=== PATIENT | female | born 2005 | race Caucasian/White ===

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

== ENCOUNTER 2024-10-15 23:46 | Emergency (ER) | payer OTHER, SELFPAY ==
--- NOTE | ~2024-10-15 | XR_ITS ---
Portable chest x-ray Comparison: None Clinical History: Chest pain Findings: Lungs are clear, without focal consolidation or pleural effusion. Cardiomediastinal silho uette is unremarkable. Bones and soft tissues are unremarkable. Impression: Normal chest. Reviewed, dictated and finalized at location . HELPER Impression: Normal chest.
--- NOTE | 2024-10-15 23:56 | ECG_ITS ---
Test Date: 2024-10-16 00:03:52 Measurements Intervals [place] Rate: 107 P: 64 TN: 151 QRS: 10 QRSD: 108 T: 50 QT: 350 QTc: 469 Interpretive Statements SINUS TACHYCARDIA INCOMPLETE RIGHT BUNDLE BRANCH BLOCK NONSPECIFIC ST AND T-WAVE ABNORMALITY No previous ECG available for comparison Electronically Signed On 10-16-2024 12:14:47 AWS CONSULTANT by Zheng Bella M.D.
[2024-10-16 00:49] VITALS: PULSE 99; RESP 25
[2024-10-16 00:49] LABS: BEDSIDEPREGUCG Negative (Negative)
[2024-10-16] MEDS: IPRATROPIUM 0.5 MG/ALBUTEROL SULFATE 2.5 MG AMPUL.NEB 3 ML 12 ML INHALATION (00:49)
[2024-10-16 00:55] VITALS: O2SAT 95
--- NOTE | 2024-10-16 00:55 | PCRCNOTE ---
RT unable to administer continuous updraft treatment when ordered due to patient being out of room.
[2024-10-16 01:08] LABS: Basophils Percent Auto 0.3 % (0.2-1.2); Eosinophils Absolute Auto 0.1 K/mm3 (0-0.3); Eosinophils Percent Auto 1.1 % (0-4.4); Hematocrit 43.3 % (37.0-47.0); Hemoglobin 14.5 g/dL (12.0-15.0); Immature Granulocyte Absolute 0.03 K/mm3 (0.00-0.031); Immature Granulocyte Percent A 0.3 % (0-0.5); Lymphocytes Absolute Auto 1.26 K/mm3 (0.9-3.2); Lymphocytes Percent Auto 12.4 % (18.3-44.2); Mean Corpuscular HGB Conc 33.5 g/dl (32-36); Mean Corpuscular Hemoglobin 27.9 pg (26-34); Mean Corpuscular Volume 83.4 fl (80-100); Mean Platelet Volume 9.3 fl (7.4-10.4); Monocytes Absolute Auto 0.3 K/mm3 (0.1-0.6); Monocytes Percent Auto 2.8 % (2.6-8.5); Neutrophils Absolute Auto 8.5 K/mm3 (1.3-6.7); Neutrophils Percent Auto 83.1 % (45.5-73.1); Platelet Count Result 377 k/mm3 (150-375); Red Blood Count 5.19 M/mm3 (4.2-5.4); White Blood Count 10.2 K/mm3 (4.5-10.0)
[2024-10-16 01:18] LABS: Alanine Aminotransferase 33 U/L (6-35); Albumin Level 4.6 g/dL (3.5-5.1); Alkaline Phosphatase 62 U/L (38-126); Anion Gap 6 mmol/L (4-12); Aspartate Amino Transferase 25 U/L (14-36); Bilirubin,Total 1.1 mg/dL (0.2-1.3); Blood Urea Nitrogen 8 mg/dL (7-17); Calcium 9.3 mg/dL (8.4-10.2); Carbon Dioxide 27 mmol/L (22-30); Chloride 104 mmol/L (98-107); Estimated CRCL calculation 132 ml/min; Estimated Glomerular Filt Rate > 60; Glucose 134 mg/dL (65-110); Potassium 3.5 mmol/L (3.4-5.0); Sodium 137 mmol/L (137-145)
[2024-10-16] MEDS: dexAMETHasone SOD PHOS INJ 10 MG/ML 1 ML VIAL IV PUSH (01:20)
[2024-10-16] MEDS: MAGNESIUM SULF 2 GM/WATER 50ML 2 GM/50 ML BAG IVPB (01:20)
[2024-10-16] MEDS: SODIUM CHLORIDE 0.9% IV 1,000 ML 999 ML IV CONT (01:21)
[2024-10-16 01:28] VITALS: O2SAT 99
[2024-10-16 01:52] VITALS: PULSE 92; RESP 21
--- NOTE | 2024-10-16 02:26 | ED_ITS ---
HPI - General Adult General Chief complaint: Shortness of Breath/Dyspnea Stated complaint: SOB, wheezing, chest pain, hx of asthma Time Seen by Provider: 10/16/24 00:24 History of Present Illness HPI narrative: This is a 19-year-old female history of asthma presenting with difficulty breathing. Patient woke up this morning has been feeling more wheezy than usual. She has had a slight cough. No fevers chills chest pain or flu-like symptoms. She has been taking rest inhaler as instructed. She has noticed over the last month she has had to use it more than usual. Related Data Allergies Allergy/AdvReac Type Severity Reaction Status Date / Time No Known Allergies Allergy Verified 10/16/24 00:40 Exam 2 Narrative: APPEARANCE: No apparent distress. Head: atraumatic. EYES: EOMI, NOSE: Atraumatic NECK: Trachea midline RESPIRATORY: slightly tachypneic, speaking in full sentences, wheezing CARDIOVASCULAR: tachycardic ABDOMINAL: Non-distended MUSCULOSKELETAl: No obvious deformities NEURO: Alert. Moving 4/4 extremities SKIN:: Warm, dry. Normal color PSYCHIATRIC: Normal affect Course Vital Signs Vital signs: Vital Signs Pulse Rate 99 10/16/24 00:49 Respiratory Rate 25 H 10/16/24 00:49 Pulse Rate 92 10/16/24 01:52 Respiratory Rate 21 H 10/16/24 01:52 Pulse Oximetry 99 10/16/24 01:28 Oxygen Delivery Room Air 10/16/24 01:28 Medical Decision Making [facility] Narrative Medical decision making narrative: -Course: 19-year-old female with asthma presenting with difficulty breathing. Wheezing on exam. Given an hour long DuoNeb treatment dexamethasone and magnesium with improvement. no more wheezing. Patient feels better. Patient discharged with primary care follow-up. Given return precautions. -DDX includes but is not limited to: asthma exacerbation, pneumonia, URI -Co-morbidities complicating care: asthma -Independent interpretation of studies: labs imaging reviewed - Vital Signs Vital Signs: Vital Signs Pulse Rate 99 10/16/24 00:49 Respiratory Rate 25 H 10/16/24 00:49 Pulse Rate 92 10/16/24 01:52 Respiratory Rate 21 H 10/16/24 01:52 Pulse Oximetry 99 10/16/24 01:28 Oxygen Delivery Room Air 10/16/24 01:28 Lab Data 10/16/24 01:03 10/16/24 01:03 Labs: Lab Results 10/16/24 10/16/24 Range/Units 00:47 01:03 WBC 10.2 H (4.5-10.0) K/mm3 RBC 5.19 (4.2-5.4) M/mm3 Hgb 14.5 (12.0-15.0) g/dL Hct 43.3 (37.0-47.0) % MCV 83.4 (80-100) fl MCH 27.9 (26-34) pg MCHC 33.5 (32-36) g/dl RDW 13.0 (11.5-14.5) % Plt Count 377 H (150-375) k/mm3 MPV 9.3 (7.4-10.4) fl Immature Gran % (Auto) 0.3 (0-0.5) % Neut % (Auto) 83.1 H (45.5-73.1) % Lymph % (Auto) 12.4 L (18.3-44.2) % Gilliam % (Auto) 2.8 (2.6-8.5) % Eos % (Auto) 1.1 (0-4.4) % Baso % (Auto) 0.3 (0.2-1.2) % Lymph # (Auto) 1.26 (0.9-3.2) K/mm3 Gilliam # (Auto) 0.3 (0.1-0.6) K/mm3 Eos # (Auto) 0.1 (0-0.3) K/mm3 Baso # (Auto) 0.0 (0.0-0.1) K/mm3 Abs Immat Gran (auto) 0.03 (0.00-0.031) K/mm3 Absolute Neuts (auto) 8.5 H (1.3-6.7) K/mm3 Absolute Nucleated RBC 0.000 (0.0-0.012) K/mm3 Nucleated RBC % 0.0 (0.0-0.2) % Sodium 137 (137-145) mmol/L Potassium 3.5 (3.4-5.0) mmol/L Chloride 104 (98-107) mmol/L Carbon Dioxide 27 (22-30) mmol/L Anion Gap 6 (4-12) mmol/L BUN 8 (7-17) mg/dL Creatinine 0.80 (0.7-1.0) mg/dL Estim Creat Clear Calc 132 ml/min Estimated GFR > 60 (59 - ) Glucose 134 H (65-110) mg/dL Calcium 9.3 (8.4-10.2) mg/dL Total Bilirubin 1.1 (0.2-1.3) mg/dL AST 25 (14-36) U/L ALT 33 (6-35) U/L Alkaline Phosphatase 62 (38-126) U/L Total Protein 8.0 (6.3-8.2) g/dL Albumin 4.6 (3.5-5.1) g/dL POC Urine HCG, Qual Negative (Negative) Discharge Plan Discharge Clinical Impression: Asthma Patient Disposition: Home, Self-Care Condition: Stable Instructions: Antibiotic Form, Asthma (ED) Additional Instructions: Please follow-up with your primary care physician. Return if you develop any new or worsening symptoms. Patient Language: Liberian Follow-up/Referrals: MARBELLA,BEL SANDOVAL [Primary Care Provider] -
[2024-10-16 02:55] VITALS: BP 133/80; PULSE 111; RESP 22; O2SAT 99
[2024-10-16 03:36] VITALS: BP 133/80; PULSE 111; RESP 22; O2SAT 99
== END 2024-10-16 03:38 | disposition home or self-care (01) ==
PROVIDERS: Emergency Provider Emergency Medicine; PCP Nurse Practitioner Family
DX: J45.909 Unspecified asthma, uncomplicated (principal)
CPT/HCPCS: 36415; 71045; 80053; 81025; 85025; 93005; 94640; 96365; 96366; 96375; 99284; J1100; J3475; J7030

== ENCOUNTER 2025-04-05 01:29 | Emergency (ER) | payer OTHER, SELFPAY ==
[2025-04-05] VITALS (7 sets, daily range): BP systolic 122–149; BP diastolic 65–95; PULSE 87–94; RESP 12–25; TEMP 36.2; O2SAT 97–100
--- OUTSIDE RECORDS SUMMARY | 2025-04-05 01:31 | XMS_ITS | Referral Summary ---
Author Organization [facility] Address [address] [place] [id number] Care Team Providers Care Builder'S Labourer Name Role Phone No, Physician Primary Care Provider [phone] Allergies No known active allergies Medications albuterol HFA (PROVENTIL HFA,VENTOLIN HFA,PROAIR HFA) 90 mcg/actuation inhaler INHALE 2 PUFFS INTO THE LUNGS EVERY 6 HOURS NEEDED FOR WHEEZE Active citalopram (CeleXA) 10 mg tablet Take 1 tablet (10 mg total) by mouth daily 4 Active fluticasone propion-salmete roL (ADVAIR DISKUS) 100-50 mcg/dose diskus inhaler INHALE 1 PUFF INTO THE LUNGS TWICE A DAY 4 Active albuterol 2.5 mg /3 mL (0.083 %) nebulizer solutionIndicat ions:Exacerbati on of asthma, unspecified asthma severity, unspecified whether persistent Take 3 mL (2.5 mg total) by nebulization every 6 (six) hours as needed for wheezing 75 mL 4 Active Active Problems Problem Noted Date Diagnosed Date 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 gentle skin care; start TMC 0.1% ointment BID PRN (SER); if continues to flare, discussed patch testing Social History Tobacco Use Types Packs/Day Years Used Date Smoking Tobacco: Never Comments Unknown Sex and Gender Information Value Date Recorded Sex Assigned at Not on file Legal Sex Female 6:00 AM MANAGER MEDICAL DEVICE Gender Identity Not on file Sexual Orientation Not on file Last Filed Vital Signs Vital Sign Reading Time Taken Comments Blood Pressure 136/82 10/15/2024 2:20 PM MANAGER MEDICAL DEVICE Pulse 90 10/15/2024 2:30 PM MANAGER MEDICAL DEVICE Temperature 36.4 C (97.5 F) 10/15/2024 2:20 PM MANAGER MEDICAL DEVICE Respiratory Rate 24 10/15/2024 2:20 PM MANAGER MEDICAL DEVICE Oxygen Saturation 98% 10/15/2024 2:30 PM MANAGER MEDICAL DEVICE Inhaled Oxygen Concentration - - Weight 122 kg (269 lb) 10/15/2024 2:20 PM MANAGER MEDICAL DEVICE Height - - Body Mass Index - - Plan of Treatment Not on file [place] [id number] [facility] CHOICE PLUS Care Teams Builder'S Labourer Relationship Specialty Start Date End Date No, Physician PCP - General 11/01/22
--- OUTSIDE RECORDS SUMMARY | 2025-04-05 01:31 | XMS_ITS | Clinical Summary ---
Author Organization [facility] Address [address] [place] [address] Phone Care Team Providers Care Meal Packer Name Role Phone Provider, None Primary Care Provider Unavailabl e Allergies No known active allergies Medications ibuprofen (MOTRIN) 800 MG TabletIndication s:Crush injury Take 1 Tablet by mouth every 8 hours. 15 Tablet 07/25/2021 Active Social History Tobacco Use Types Packs/Day Years Used Date Smoking Tobacco: Never Assessed Comments Unknown Sex and Gender Information Value Date Recorded Sex Assigned at Not on file Legal Sex Female 12:34 PM CDT Gender Identity Not on file Sexual Orientation Not on file Last Filed Vital Signs Vital Sign Reading Time Taken Comments Blood Pressure 112/72 07/25/2021 12:59 PM CDT Pulse 71 07/25/2021 12:59 PM CDT Temperature 36.7 C (98 F) 07/25/2021 12:59 PM CDT Respiratory Rate 18 07/25/2021 12:59 PM CDT Oxygen Saturation 98% 07/25/2021 12:59 PM CDT Inhaled Oxygen Concentration - - Weight 113.4 kg (250 lb) 07/25/2021 12:59 PM CDT Height 179.8 cm (5' 10.8) 07/25/2021 12:59 PM C DT Body Mass Index 35.07 07/25/2021 12:59 PM CDT Plan of Treatment Health Maintenance Due Date Last Done Comments Hepatitis C Virus (HCV) Screening 2003 Meningococcal B Immunization (1 of 2 - Standard) 2019 Hepatitis B Immunization (1 of 3 - 19+ 3-dose series) 2022 Pap Smear 2024 Influenza Immunization (#1) 06/28/20242 02/2020, 10/06/2019, 09/14/2018 SARS-COV-2 Immunization ( season) 2024 10/11/2021, 01/27/2021, 01/06/2021 Respiratory Syncytial Virus (RSV) Immunization (Adult) (1 - 1-dose 75+ series) 2078 DTaP/Tdap/Td Immunization Discontinued 07/08/2014 TdaP Immunization Completed 07/08/2014 Human Papillomavirus (HPV) Immunization Completed 10/06/2019, 04/06/2019, 03/02/2019 Meningococcal Immunization (ACWY) Completed 08/11/2020 Pneumococcal Immunization Combined Aged Out No longer eligible based on patient's age to complete this topic Rotavirus Immunization Aged Out No lo nger eligible based on patient's age to complete this topic Insurance [facility] Care Teams Meal Packer Relationship Specialty Start Date End Date Provider, None [place] PCP - General 07/26/21
--- OUTSIDE RECORDS SUMMARY | 2025-04-05 01:31 | XMS_ITS | Clinical Summary ---
Author Organization [facility] Address [address] [place] [id number] Care Team Providers Care [employer] And Estates Paralegal Name Role Phone No, Physician Primary Care Provider [phone] Allergies No known active allergies Medications albuterol [...] on file Legal Sex Female 6:00 AM UNDERWRITER MORTGAGE LOAN Gender Identity Not on file Sexual Orientation Not on file Obstetrics History Last Filed Vital Signs Vital Sign Reading Time Taken Comments Blood Pressure 136/82 10/15/2024 2:20 PM UNDERWRITER MORTGAGE LOAN Pulse 90 10/15/2024 2:30 PM UNDERWRITER MORTGAGE LOAN Temperature 36.4 C (97.5 F) 10/15/2024 2:20 PM UNDERWRITER MORTGAGE LOAN Respiratory Rate 24 10/15/2024 2:20 PM UNDERWRITER MORTGAGE LOAN Oxygen Saturation 98% 10/15/2024 2:30 PM UNDERWRITER MORTGAGE LOAN Inhaled Oxygen Concentration - - Weight 122 kg (269 lb) 10/15/2024 2:20 PM UNDERWRITER MORTGAGE LOAN Height - - Body Mass Index - - Plan of Treatment Health Maintenance Due Date Last Done Comments Cervical Cancer Screening 2003 Depression Screening 2003 Hepatitis C Screening 2003 Varicella Vaccines (1 of 2 - 13+ 2-dose series) 2016 Meningococcal B Vaccine (1 o f 2 - Standard) 2019 Regular Well Visit/Exam 18-64 2021 Pneumococcal vaccine <65 (1 of 2 - PCV) 2022 Covid-19 Vaccine (4 - 2023-2 5 season) 2024 10/11/2021, 01/27/2021, 01/06/2021 DTaP/Tdap/Td Vaccine (2 - Td or Tdap) 07/08/2024 07/08/2014 Influenza Vaccine (Season Ended) 2025 11/01/2023, 07/16/2022, 10/06/2021, Additional history exists Hepatitis B Screening Completed 2003 HPV Vaccines Completed 10/06/2019, 03/28, 03/02/2019 Meningococcal Vaccine Completed 08/11/[address] [facility] CHOICE PLUS Care Teams Trust And Estates Paralegal Relationship Specialty Start Date End Date No, Physician PCP - General 11/01/22
--- NOTE | 2025-04-05 02:34 | ED.GENADULT ---
HPI - General Adult General Chief complaint: Shortness of Breath/Dyspnea Stated complaint: asthma attack and out of medications Time Seen by Provider: 04/05/25 02:28 History of Present Illness HPI narrative: Patient is a 19-year-old female who presents emergency department this evening stating that she ran out of her albuterol solution for her nebulizer. Patient felt like she was having an asthma attack so she decided to come to the emergency department for further evaluation. Upon her arrival, patient states that her shortness of breath has resolved and she does not feel as though she is wheezing any longer. Is requesting a refill of her albuterol nebulizer solution. Related Data Allergies Allergy/AdvReac Type Severity Reaction Status Date / Time No Known Allergies Allergy Verified 10/16/24 00:40 Review of Systems Review of Systems: All systems are reviewed and are negative unless stated otherwise in the HPI. Exam Narrative: General: Alert, awake, afebrile, in no acute distress. HEENT: PERRL, no rhinorrhea, no post nasal drip, oropharynx clear. Neck: Trachea midline, no JVD, no lymphadenopathy. Cardiovascular: Regular rate and rhythm, no murmurs, rubs or gallops, no peripheral edema. Respiratory: Clear to auscultation bilaterally, no tachypnea, no wheezing, no rhonchi, no rubs, no respiratory distress. Abdomen: Soft, nontender, nondistended, no rebound, no guarding, no peritoneal signs. Musculoskeletal: No joint swelling or deformity, normal muscle tone. Skin: No rashes or petechia, no signs of infection. Psychiatric: Alert and oriented, normal behavior and judgment for situation. Neurological: Alert and oriented to person, place, and time. Follows all commands. No focal deficits, speech is clear and fluent. Course Vital Signs Vital signs: Vital Signs Temperature 97.2 F L 04/05/25 01:31 Pulse Rate 93 04/05/25 01:31 Respiratory Rate 16 04/05/25 01:31 Blood Pressure 149/95 H 04/05/25 01:31 Pulse Oximetry 98 04/05/25 01:31 Temperature 97.2 F L 04/05/25 01:31 Pulse Rate 93 04/05/25 01:31 Respiratory Rate 16 04/05/25 01:31 Blood Pressure 149/95 H 04/05/25 01:31 Pulse Oximetry 97 04/05/25 01:59 Oxygen Delivery Room Air 04/05/25 01:59 Medical Decision Making MDM Narrative Medical decision making narrative: The patient was evaluated by myself in the emergency department. History is obtained from patient who is an independent historian and physical exam was performed. External medical records were reviewed at this time. Patient was administered a DuoNeb breathing treatment. Differential diagnosis considerations include acute viral syndrome, asthma exacerbation. Comorbidities impacting this visit include history of asthma. I have evaluated and discussed social determinants of health with the patient that could potentially impact subsequent diagnosis and treatment plans. On repeat assessment of the patient, reevaluation revealed that the patient is doing well and is in no acute distress. Patient symptoms have improved since she arrived to our emergency department. Repeat vital signs were all reviewed and noted to be stable. Differential diagnosis and treatment plan were discussed with the patient at bedside. Patient agrees with discussion and after shared medical decision making agrees with discharge. All questions were answered to the patient's satisfaction. Patient will follow up with her PCP in 3-5 days. Her albuterol nebulizer solution script was refilled. Patient was provided with strict return precautions and instructed to return to the emergency department if any new or worsening symptoms develop. The patient was discharged in stable condition. Vital Signs Vital Signs: Vital Signs Temperature 97.2 F L 04/05/25 01:31 Pulse Rate 93 04/05/25 01:31 Respiratory Rate 16 04/05/25 01:31 Blood Pressure 149/95 H 04/05/25 01:31 Pulse Oximetry 98 04/05/25 01:31 Temperature 97.2 F L 04/05/25 01:31 Pulse Rate 93 04/05/25 01:31 Respiratory Rate 16 04/05/25 01:31 Blood Pressure 149/95 H 04/05/25 01:31 Pulse Oximetry 97 04/05/25 01:59 Oxygen Delivery Room Air 04/05/25 01:59 Discharge Plan Discharge Clinical Impression: Asthma attack Patient Disposition: Home Condition: Improved Instructions: Antibiotic Form, Asthma (ED) Additional Instructions: Please follow-up with your family doctor within the next 3-5 days. Your albuterol nebulizer solution script was refilled. Return to ED if any new or worsening symptoms develop. Patient Language: Tamazight Prescriptions: New albuterol sulfate 2.5 mg /3 mL (0.083 %) solution for nebulization 2.5 mg inhalation Q4H PRN (Reason: shortness of breath or wheezing) Qty: 180 0RF Follow-up/Referrals: MARBELLA,BEL SANDOVAL [Primary Care Provider] - 3 Days Time of Disposition: 02:34
--- OUTSIDE RECORDS SUMMARY | 2025-04-05 02:38 | XMS_ITS | Clinical Summary ---
Author Organization [facility] Address [address] [place] [address] Phone Care Team Providers Care Automotive Generator Repairer Name Role Phone Provider, None Primary Care [...] patient's age to complete this topic Insurance [facility] Care Teams Automotive Generator Repairer Relationship Specialty Start Date End Date Provider, None [place] PCP - General 07/26/21
--- OUTSIDE RECORDS SUMMARY | 2025-04-05 02:38 | XMS_ITS | Clinical Summary ---
Author Organization [facility] Address [address] [place] [phone] Care Team Providers Care Cinder Man Name Role Phone No, Physician Primary Care Provider Allergies No known active allergies Medications albuterol [...] on file Legal Sex Female 6:00 AM PORTFOLIO ADMINISTRATOR Gender Identity Not on file Sexual Orientation Not on file Obstetrics History Last Filed Vital Signs Vital Sign Reading Time Taken Comments Blood Pressure 136/82 10/15/2024 2:20 PM PORTFOLIO ADMINISTRATOR Pulse 90 10/15/2024 2:30 PM PORTFOLIO ADMINISTRATOR Temperature 36.4 C (97.5 F) 10/15/2024 2:20 PM PORTFOLIO ADMINISTRATOR Respiratory Rate 24 10/15/2024 2:20 PM PORTFOLIO ADMINISTRATOR Oxygen Saturation 98% 10/15/2024 2:30 PM PORTFOLIO ADMINISTRATOR Inhaled Oxygen Concentration - - Weight 122 kg (269 lb) 10/15/2024 2:20 PM PORTFOLIO ADMINISTRATOR Height - - Body Mass Index - [...] 03/28, 03/02/2019 Meningococcal Vaccine Completed 08/11/2020 Insurance [facility] CHOICE PLUS Care Teams Cinder Man Relationship Specialty Start Date End Date No, Physician PCP - General 11/01/22
--- OUTSIDE RECORDS SUMMARY | 2025-04-05 02:38 | XMS_ITS | Referral Summary ---
Author Organization [facility] Address [address] [place] [id number] Care Team Providers Care Parts Fabricator Name Role Phone No, Physician Primary Care Provider [phone] Allergies No known active allergies Medications albuterol [...] on file Legal Sex Female 6:00 AM SUBGRADE ROLLER OPERATOR Gender Identity Not on file Sexual Orientation Not on file Last Filed Vital Signs Vital Sign Reading Time Taken Comments Blood Pressure 136/82 10/15/2024 2:20 PM SUBGRADE ROLLER OPERATOR Pulse 90 10/15/2024 2:30 PM SUBGRADE ROLLER OPERATOR Temperature 36.4 C (97.5 F) 10/15/2024 2:20 PM SUBGRADE ROLLER OPERATOR Respiratory Rate 24 10/15/2024 2:20 PM SUBGRADE ROLLER OPERATOR Oxygen Saturation 98% 10/15/2024 2:30 PM SUBGRADE ROLLER OPERATOR Inhaled Oxygen Concentration - - Weight 122 kg (269 lb) 10/15/2024 2:20 PM SUBGRADE ROLLER OPERATOR Height - - Body Mass Index - - Plan of Treatment Not on file [place] [id number] [facility] CHOICE PLUS Care Teams Parts Fabricator Relationship Specialty Start Date End Date No, Physician PCP - General 11/01/22
[2025-04-05] MEDS: IPRATROPIUM 0.5 MG/ALBUTEROL SULFATE 2.5 MG AMPUL.NEB 3 ML INHALATION (02:50)
== END 2025-04-05 03:20 | disposition home or self-care (01) ==
PROVIDERS: Emergency Provider Emergency Medicine; PCP Nurse Practitioner Family
DX: J45.901 Unspecified asthma with (acute) exacerbation (principal)
CPT/HCPCS: 94640; 99283